=== PATIENT | male | born 2000 | race Hispanic/Latino ===

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

== ENCOUNTER 2025-01-21 13:19 | Emergency (ER) | payer SELFPAY ==
[~2025-01-21] VITALS: Ht 167.6 cm; Wt 61.7 kg
[2025-01-21 13:39] LABS: IMMATURE GRANULOCYTE ABSOLUTE 0.05 K/uL (0-1); NUCLEATED RED BLOOD CELLS 0.0 % (0.0-0.19); PLATELET COUNT (AUTO) 212 K/uL (130-400); RED BLOOD CELL COUNT(AUTO) 4.54 MIL/uL (4.50-6.20); RED CELL DISTRIBUTION WIDTH 12.5 % (11.0-15.5); WHITE BLOOD COUNT (AUTO) 11.0 K/uL (4.8-10.8)
[2025-01-21 13:54] LABS: AMPHET/METH SCREEN,URINE NEGATIVE (NEGATIVE); BARBITURATE SCREEN, URINE NEGATIVE (NEGATIVE); CANNABINOID SCREEN,URINE POSITIVE (NEGATIVE); COCAINE SCREEN,URINE NEGATIVE (NEGATIVE)
[2025-01-21 13:59] LABS: CREATININE 1.0 mg/dL (0.5-1.3); GLOMERULAR FILTR. RATE CALC 109.0 mL/min (>90); GLUCOSE,RANDOM 161.0 mg/dL (70-105); SODIUM SERUM 136.0 mmol/L (136-145); UREA NITROGEN, BLOOD 17.0 mg/dL (7-18)
[2025-01-21 14:04] LABS: ASPARTATE AMINOTRANSFERASE 24.0 U/L (10-37); TOTAL PROTEIN, SERUM 8.4 g/dL (6.0-8.3)
[2025-01-21] MEDS: 0.9%NACL 1000ML 1,000 ML IV ONE (14:07)
--- NOTE | 2025-01-21 14:27 | HMCIMG ---
EXAM: CT Abdomen and Pelvis Without IV contrast CLINICAL HISTORY: r/o ureter stone TECHNIQUE: Axial computed tomography images of the abdomen and pelvis without intravenous contrast. CONTRAST: No IV contrast. COMPARISON: None provided. FINDINGS: LUNG BASES: The lung bases appear clear. No pleural effusions are seen. LIVER: Unremarkable. GALLBLADDER AND BILE DUCTS: The gallbladder appears within normal limits. No radioopaque gallstones are seen. No biliary ductal dilatation is evident. PANCREAS: Unremarkable. SPLEEN: Unremarkable. ADRENAL GLANDS: Unremarkable. KIDNEYS, URETERS, AND BLADDER: The kidneys appear within normal limits. There is no hydronephrosis or hydroureter. Rndall plaque In both kidneys. STOMACH AND BOWEL: Unremarkable appearance of the stomach and bowel. No evidence of bowel obstruction. No evidence suggesting enteritis or colitis. APPENDIX: No evidence of acute appendicitis on CT examination. PERITONEUM: No free fluid. No free air. LYMPH NODES: No lymphadenopathy is evident. REPRODUCTIVE: Unremarkable as visualized. VASCULATURE: No evidence of abdominal aortic aneurysm. BONES: No aggressive appearing osseous lesion. No acute osseous pathology evident. IMPRESSION: 1. No acute intraabdominal or pelvic pathology. /[place]
--- NOTE | 2025-01-21 14:42 | ERN ---
General Chief Complaint: Abdominal Pain Stated Complaint: LOWER ABD PAIN Time Seen by MD: 13:22 Time Seen by Midlevel: 13:22 Source: patient History of Present Illness Initial Comments The patient is a 24-year-old male presenting to the emergency department for evaluation of nausea and vomiting and diffuse abdominal pain. On arrival with the patient is a actively vomiting and retching. He specifically denies any marijuana use. Denies any other symptoms. Allergies: Coded Allergies: No Known Allergies (Unverified Allergy, Unknown, 02/23/20) Home Meds Active Scripts Dicyclomine HCl (Bentyl) 20 Mg Tab, 20 MG PO QIDP, #28 TAB Prov:LOUIS SPENCE 09/24/20 Past Medical History Past Medical History: No Pertinent History Past Surgical History: None ROS Dictation CONSTITUTIONAL: Negative except for HPI HEAD/FACE: Negative except for HPI EENT: Negative except for HPI RESPIRATORY: Negative except for HPI GASTROINTESTINAL/ABDOMINAL: Negative except for HPI GENITOURINARY: Negative except for HPI MUSCULOSKELETAL: Negative except for HPI INTEGUMENTARY: Negative except for HPI NEUROLOGICAL/PSYCH: Negative except for HPI HEMATOLOGIC/LYMPHATIC: Negative except for HPI All Systems Negative, Except as noted above. 13 point review of systems assessed and all negative except for above. Physical Exam Physical Exam Dictation Vital Signs reviewed General Appearance: Alert, oriented x 3, no acute distress, well developed, nourished. Head and Face: non-traumatic. Eyes: PERRL, pink conjunctivas, eyelid no trauma, anterior chamber with arcus senilis. Ears: Pinnas intact and no signs of trauma or erythema ear canals clear and no discharge TM no erythema Nose: No discharge, no bleeding. Oropharynx: Mouth normal, tongue pink, pharynx clear,no erythema, tonsils no exudates, no abscesses noted, mucous membrane moist Neck: Supple, non-tender, no thyromegaly, no masses, no JVD, no bruits Breast:Deferred Chest:No tenderness, no crepitus, no paradoxical movement, no retractions Lungs:Clear, well-ventilated, symmetric, no rales, no wheezing, no rhonchi, no stridor, good breath sounds bilaterally Heart: Regular rate, regular rhythm, no murmur, no gallops Vascular: no peripheral edema, Abdomen: Soft, positive bowel sounds, nondistended, no guarding, nontender, no rebound, no masses no hepatomegaly, no splenomegaly, no Vail's sign, no hernias. Rectal: Deferred Genital: Deferred Neurological: Normal speech, motor function intact, sensory function intact Musculoskeletal: Neck nontender, full range of motion, back nontender, full range of motion, Extremities: nontender, full range of motion Skin: Color pink, dry, no turgor, no rash, no lacerations, no abrasions, no contusions. Lymphatic: Deferred Results Laboratory and Microbiology Lab and Micro Result Laboratory Tests Test 01/21/25 13:30 01/21/25 13:37 White Blood Count 11.0 K/uL (4.8-10.8) H Red Blood Count 4.54 MIL/uL (4.50-6.20) Hemoglobin 14.1 g/dL (14.0-18.0) Hematocrit 41.7 % (42-54) L Mean Corpuscular Volume 91.9 fL (79-99) Mean Corpuscular Hemoglobin 31.1 pg (27.0-33.0) Mean Corpuscular Hemoglobin Concent 33.8 g/dL (32.0-36.0) Red Cell Distribution Width 12.5 % (11.0-15.5) Platelet Count 212 K/uL (130-400) Mean Platelet Volume 10.2 fL (7.5-10.5) Immature Granulocyte % (Auto) 0.5 % (0-1) Neutrophils (%) (Auto) 80.9 % (40.0-77.0) H Lymphocytes (%) (Auto) 10.8 % (21.0-51.0) L Monocytes (%) (Auto) 7.3 % (3.0-13.0) Eosinophils (%) (Auto) 0.1 % (0.0-8.0) Basophils (%) (Auto) 0.4 % (0.0-5.0) Neutrophils # (Auto) 8.9 K/uL (1.8-7.7) H Lymphocytes # (Auto) 1.2 K/uL (1.0-4.8) Monocytes # (Auto) 0.8 K/uL (0.1-1.0) Eosinophils # (Auto) 0.01 K/uL (0.00-0.70) Basophils # (Auto) 0.04 K/uL (0.00-0.20) Absolute Immature Granulocyte (auto 0.05 K/uL (0-1) Nucleated Red Blood Cells 0.0 % (0.0-0.19) Sodium Level 136 mmol/L (136-145) Potassium Level 3.7 mmol/L (3.5-5.1) Chloride Level 97 mmol/L (101-111) L Carbon Dioxide Level 23 mmol/L (21-32) Blood Urea Nitrogen 17 mg/dL (7-18) Creatinine 1.0 mg/dL (0.5-1.3) Glomerular Filtration Rate Calc 109 mL/min (>90) Random Glucose 161 mg/dL (70-105) H Total Calcium 9.3 mg/dL (8.5-10.1) Magnesium Level 1.50 mg/dL (1.80-2.40) L Total Bilirubin 0.5 mg/dL (0.2-1.0) Aspartate Amino Transf (AST/SGOT) 24 U/L (10-37) Alanine Aminotransferase (ALT/SGPT) 35 U/L (12-78) Alkaline Phosphatase 59 U/L (50-136) Total Protein 8.4 g/dL (6.0-8.3) H Albumin 4.1 g/dL (3.5-5.0) Lipase 30 U/L (16-77) Urine Opiates Screen NEGATIVE (NEGATIVE) Urine Barbiturates Screen NEGATIVE (NEGATIVE) Urine Phencyclidine Screen NEGATIVE (NEGATIVE) Urine Amphetamines Screen NEGATIVE (NEGATIVE) Urine Benzodiazepines Screen NEGATIVE (NEGATIVE) Urine Cocaine Screen NEGATIVE (NEGATIVE) Urine Marijuana (THC) Screen POSITIVE (NEGATIVE) H Labs Reviewed?: Yes MDM MDM: The patient is a 24-year-old male presenting to the emergency department for evaluation of nausea and vomiting and diffuse abdominal pain. On arrival with the patient is a actively vomiting and retching. He specifically denies any marijuana use. Denies any other symptoms. On physical examination the patient is actively retching. There was no projectile vomiting noted. An abdominal workup was obtained. There is slight leukocytosis on CBC no anemia no thrombocytopenia. Chemistries are stable. A CT scan of the abdomen/pelvis was unremarkable. His urine drug screen is lina rkable for marijuana. On repeat examination the patient was asked about marijuana use and he is now admitting to being a marijuana smoker. He was given Toradol and morphine but continues to ask for pain medication. The patient will be discharged home given stable workup workup. Differential diagnosis: Hyperemesis cannabinoid syndrome, dehydration, bowel obstruction There are no social concerns with this patient. Prescription drug management Prescriptions will include: Medical management and examination interpretation discussions were had by me with other qualified healthcare professionals as indicated for the patient's care. ED Course Orders Procedure Category Date Status Time Cbc With Differential LAB 01/21/25 Complete 13:21 Comprehensive LAB 01/21/25 Complete Metabolic Panel 13:21 Lipase LAB 01/21/25 Complete 13:21 Magnesium LAB 01/21/25 Complete 13:21 0.9%Nacl 1000ml (Ns PHA 01/21/25 Complete 1000ml) 13:30 Ondansetron 4mg Inj PHA 01/21/25 Complete (Zofran 4mg Inj) 13:30 Drug Screen Urine LAB 01/21/25 Complete 13:21 Ketorolac PHA 01/21/25 Complete Tromethamine 15mg/Ml 13:30 Ct Abdomen/Pelvis W/O CT 01/21/25 Resulted Contrast 13:26 Diphenhydramine Hcl PHA 01/21/25 Complete (Benadryl Inj) 15:00 Morphine 2mg Syg PHA 01/21/25 Complete (Morphine 2mg Syg) 15:00 Lorazepam 2 Mg PHA 01/21/25 Complete (Ativan) 16:00 Vital Signs Date Time Temp Pulse Resp B/P (MAP) Pulse Ox O2 Delivery O2 Flow Rate FiO2 01/21/25 16:28 98.8 86 16 138/78 99 Room Air* 0 01/21/25 15:12 98.8 88 16 140/82 99 Room Air* 0 01/21/25 14:29 98.8 79 16 146/85 98 Room Air* 0 01/21/25 13:21 97.7 79 16 146/85 98 Room Air 0 DX & DISP Disposition: Discharge Departure Impression: Primary Impression: Marijuana abuse Additional Impression: Cannabinoid hyperemesis syndrome Condition: Stable Referrals: TAMMY WONG MD (PCP) I have reviewed the case, and I agree with, Diagnosis and Plan ERICA JACKSON PAC Jan 21, 2025 14:42
[2025-01-21 16:28] VITALS: BP 138/78; PULSE 86; RESP 16; TEMP 98.8; O2SAT 99
== END 2025-01-21 16:37 | disposition home or self-care (01) ==
LOC: EDH 13:19
DX: F12.10 Cannabis abuse, uncomplicated (principal); R11.16 Cannabis hyperemesis syndrome; R11.2 Nausea with vomiting, unspecified; R10.30 Lower abdominal pain, unspecified
CPT/HCPCS: 99285; 74176; 96374; 96375; 96361; 83735; 80053; 80305; 83690; 85025; 36415; J1885; J1200; J2270; J7030; J2405; J2060